=== PATIENT | male | born 1950 | race African-American/Black ===

== ENCOUNTER 2024-04-30 12:29 | Emergency (ER) | payer OTHER ==
[~2024-04-30] VITALS: Ht 162.6 cm; Wt 55.0 kg
[~2024-04-30 12:29] MED LIST: DIVA-112 PO; HALO5TAB23 PO; OLAN10TA74 PO; OLAN20TA2 PO; TRAZADONE PO
[2024-04-30 12:42] VITALS: BP 137/93; PULSE 78; RESP 16; TEMP 97.8; O2SAT 93
== END 2024-04-30 12:40 | disposition left against medical advice (07) ==
LOC: EMS 12:40
DX: Z53.21 Procedure and treatment not carried out due to patient leaving prior to being seen by health care provider (principal)